=== PATIENT | female | born 1995 ===

== ENCOUNTER 2024-11-25 09:15 | Outpatient (CLI) | payer OTHER | END 2024-11-25 09:16 | disposition home or self-care (01) | LOC: PRENATAL 09:15 | PROVIDERS: ATTEND Obstetrics & Gynecology Maternal & Fetal Medicine | DX: O36.80X0 Pregnancy with inconclusive fetal viability, not applicable or unspecified (principal); Z36.82 Encounter for antenatal screening for nuchal translucency; Z3A.13 13 weeks gestation of pregnancy ==

== ENCOUNTER → 2025-01-19 08:20 | Outpatient (CLI) | payer OTHER | END | disposition home or self-care (01) | LOC: PRENATAL 08:20 | PROVIDERS: ATTEND Obstetrics & Gynecology Maternal & Fetal Medicine | DX: O44.00 Complete placenta previa NOS or without hemorrhage, unspecified trimester (principal); Z3A.20 20 weeks gestation of pregnancy ==

== ENCOUNTER 2025-04-14 08:43 | Outpatient (CLI) | payer OTHER | END 2025-04-14 08:44 | disposition home or self-care (01) | LOC: PRENATAL 08:43 | PROVIDERS: ATTEND Obstetrics & Gynecology Maternal & Fetal Medicine | DX: O26.849 Uterine size-date discrepancy, unspecified trimester (principal); O36.8130 Decreased fetal movements, third trimester, not applicable or unspecified; Z3A.33 33 weeks gestation of pregnancy ==

== ENCOUNTER 2025-05-28 10:45 | Inpatient (IN) | payer OTHER ==
[~2025-05-28] VITALS: Ht 165.1 cm; Wt 73.0 kg
[~2025-05-28 10:45] MED LIST: PRENATA CHEWAB1 EACH PO; PRENATAL TABLE1 EAC4 PO
[2025-05-28 10:50] VITALS: BP 113/80
[2025-05-28] MEDS ORDERED: RINGERS SOLUTION,LACTATED 1,000 ML IV SCH (11:15)
[2025-05-28 11:48] LABS: URINE APPEARANCE Clear; URINE BILIRRUBIN Negative (NEGATIVE); URINE BLOOD Negative; URINE COLOR Dark Yellow; URINE GLUCOSE Negative (NEGATIVE); URINE KETONE Trace (NEGATIVE); URINE LEUKOCYTE Small; URINE NITRATE Negative; URINE PROTEIN Trace (NEGATIVE); URINE UROBILINOGEN 0.2 E.U./dl
[2025-05-28 11:52] LABS: URINE BACTERIA 302.3 uL (0.0-1933); URINE EPITHELIAL CELLS 47.3 uL (0.0-38.8); URINE RBC 8.0 uL (0.0-20.8); URINE WBC 12.9 uL (0.0-23.2)
[2025-05-28 11:54] LABS: BASO % 0.3 % (0.1-1.2); EOS # 0.07 (0.04-0.54); EOS % 0.9 % (0.7-7.0); LYMPH # 1.59 (1.18-3.74); LYMPH % 21.6 % (19.3-53.1); MEAN PLATELET VOLUME 11.60 fl (9.4-12.4); MONO # 0.51 (0.24-0.82); MONO % 6.9 % (4.7-12.5); NEUT # 5.05 (1.56-6.13); NEUT % 68.5 % (34.0-71.1); RED CELL DISTRIBUTION WIDTH 14.3 % (11.6-14.4)
[2025-05-28 11:57] LABS: URINE CAST 0.29 uL (0.0-1.40)
[2025-05-28] MEDS ORDERED: MISOPROSTOL 25 MCG TABLET VAG ONE ×2 (12:00→16:30)
[2025-05-28] MEDS ORDERED: AMPICILLIN SODIUM 2,000 MG VIAL ONE (12:14)
[2025-05-28] MEDS ORDERED: AMPICILLIN SODIUM 1,000 MG VIAL IV ONE (12:15)
[2025-05-28] MEDS ORDERED: MISOPROSTOL 25 MCG/4 ML GEL.W.APPL ONE (12:21)
[2025-05-28] MEDS ORDERED: MISOPROSTOL 25 MCG TABLET ONE (12:25)
[2025-05-28 12:28] LABS: INR < 0.93
[2025-05-28 12:29] LABS: ALT/SGPT 22.0 U/L (12-78); AST/SGOT 21.0 U/L (15-37); BILIRUBIN TOTAL 1.35 mg/dL (0.3-1.2); BUN CREA RATIO 6.0 (7.0-25.0); CREATININE SERUM 0.66 mg/dL (0.55-1.02); GFR 106.64; GLOBULINA 4.0 G/DL (2.4-3.5); GLUCOSE FASTING 74.0 mg/dL (65-100); OSMOLALITY SERUM 275.0 MOSM/KG (275-295)
[2025-05-28 15:12] VITALS: BP 121/76; O2SAT 99
[2025-05-28] MEDS ORDERED: AMPICILLIN SODIUM 1,000 MG VIAL IV SCH (16:00)
[2025-05-28 16:40] LABS: CREATININE URINE RANDOM 134.0 MG/DL (30-125)
[2025-05-28 19:05] VITALS: BP 115/73; O2SAT 99
[2025-05-28 23:34] VITALS: BP 118/73
[2025-05-29 03:49] VITALS: BP 118/76
[2025-05-29 07:23] VITALS: BP 127/75
[2025-05-29] MEDS ORDERED: OXYTOCIN 20 UNITS/500ML RL PIGGYBAG IV ONE (08:45)
[2025-05-29] MEDS ORDERED: OXYTOCIN 500 ML IV SCH (09:15)
[2025-05-29 10:58] VITALS: BP 120/74
[2025-05-29] MEDS ORDERED: MORPHINE SULFATE 4 MG/ML CARTRIDGE IV ONE (11:00)
[2025-05-29] MEDS ORDERED: CHLORHEXIDINE GLUCONATE 120 ML BOTTLE TOP ONE (12:33)
[2025-05-29] MEDS ORDERED: ERYTHROMYCIN BASE OPHT 1GM EACH TUBE OP ONE (12:33)
[2025-05-29] MEDS ORDERED: LIDOCAINE HCL 1% 10ML VIAL ONE (12:33)
[2025-05-29] MEDS ORDERED: OXYTOCIN 20 UNITS/1000ML RL PIGGYBAG IV ONE (12:33)
[2025-05-29] MEDS ORDERED: CARBOPROST TROMETHAMINE 250 MCG/ML AMPUL IM ONE (13:41)
[2025-05-29] MEDS ORDERED: OXYTOCIN 1,000 ML IV SCH (15:00)
[2025-05-29] MEDS ORDERED: FAMOTIDINE/PF 20 MG/2 ML VIAL IV NR (15:00)
[2025-05-29] MEDS ORDERED: ACETAMINOPHEN 500 MG GEL..CAP PO PRN (15:00)
[2025-05-29] MEDS ORDERED: CHLORHEXIDINE GLUCONATE 120 ML BOTTLE TP SCH (15:00)
[2025-05-29] MEDS ORDERED: HYDROCORTISONE 2.5% 30 GM TUBE RECTAL PRN (15:00)
[2025-05-29 15:21] VITALS: BP 114/65
[2025-05-29 17:07] LABS: BASO % 0.3 % (0.1-1.2); EOS # 0.00 (0.04-0.54); EOS % 0.0 % (0.7-7.0); LYMPH # 0.73 (1.18-3.74); LYMPH % 4.9 % (19.3-53.1); MEAN PLATELET VOLUME 11.50 fl (9.4-12.4); MONO # 0.80 (0.24-0.82); MONO % 5.4 % (4.7-12.5); NEUT # 13.27 (1.56-6.13); NEUT % 88.8 % (34.0-71.1); RED CELL DISTRIBUTION WIDTH 14.4 % (11.6-14.4)
[2025-05-29 17:24] VITALS: BP 115/80
[2025-05-29 23:59] VITALS: BP 100/60
[2025-05-30 09:02] VITALS: BP 115/78
[2025-05-30 17:30] VITALS: BP 126/82
[2025-05-31] VITALS: BP 107/69
[2025-05-31 08:57] VITALS: BP 134/89
== END 2025-05-31 12:22 | disposition home or self-care (01) | DRG 807 ==
LOC: OB/GYN 10:45 → LDR 10:45 → OB/GYN 05-29 14:26
PROVIDERS: Student in an Organized Health Care Education/Training Program; ADMIT General Practice; ATTEND General Practice
PROC: 3E0P7VZ Introduction of Hormone into Female Reproductive, Via Natural or Artificial Opening (ICD-10-PCS; 2025-05-28)
PROC: 4A1HXCZ Monitoring of Products of Conception, Cardiac Rate, External Approach (ICD-10-PCS; 2025-05-28)
PROC: 10E0XZZ Delivery of Products of Conception, External Approach (ICD-10-PCS; principal; 2025-05-29)
PROC: 0KQM0ZZ Repair Perineum Muscle, Open Approach (ICD-10-PCS; 2025-05-29)
PROC: 3E033VJ Introduction of Other Hormone into Peripheral Vein, Percutaneous Approach (ICD-10-PCS; 2025-05-29)
DX: O70.1 Second degree perineal laceration during delivery (principal); Z37.0 Single live birth; O13.4 Gestational [pregnancy-induced] hypertension without significant proteinuria, complicating childbirth; O99.824 Streptococcus B carrier state complicating childbirth; Z3A.38 38 weeks gestation of pregnancy